=== PATIENT | male | born 1945 | race Caucasian/White ===

== ENCOUNTER 2023-12-21 15:41 | Inpatient (IN) | payer MEDICARE, SELFPAY ==
[2023-12-21] VITALS (10 sets, daily range): BP systolic 119–181; BP diastolic 68–89; PULSE 56–91; RESP 15–20; TEMP 36.7–36.8; O2SAT 95–97; BMI 22.0
--- NOTE | 2023-12-21 15:59 | XRR_ITS ---
PROCEDURE INFORMATION: Exam: XR Chest Exam date and time: 12/21/2023 4:07 PM Age: 78 years old Clinical indication: Chest pressure; Patient HX: Patient presents with chest pain. Patient called EMS x 2 for same symptoms. Patient has had chest pain since 844. Patient 324 asa, 1 nitro in route. Patient denies cardiac HX. Patient states pain radiates down left arm. Patent airway, unlabored respiraitons, and appropriate color. TECHNIQUE: Imaging protocol: Radiologic exam of the chest. Views: 1 view. COMPARISON: No relevant prior studies available. FINDINGS: Lungs: Unremarkable. No consolidation. Pleural spaces: Unremarkable. No pleural effusion. No pneumothorax. Heart/Mediastinum: Unremarkable. No cardiomegaly. Bones/joints: Unremarkable. XR/XR chest 1V portable [id number] IMPRESSION: No acute findings.
--- NOTE | 2023-12-21 15:59 | ECG_ITS ---
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 Measurements Intervals [place] Rate: 77 P: 62 [place]: 140 QRS: 30 QRSD: 92 T: 62 QT: 399 QTc: 453 Interpretive Statements SINUS RHYTHM No previous ECG available for comparison Electronically Signed On 12-21-2023 19:18:46 CDT by Roldan Sanchez M.D. [id number] f
--- NOTE | 2023-12-21 16:11 | W.ED.CHESTPA ---
HPI - Chest Pain General: Chief Complaint: Chest Pain Stated Complaint: CP Time Seen by Provider: 12/21/23 15:50 History of Present Illness: 78-year-old male with a history of hypertension and hyperlipidemia who presents the emergency room with left-sided chest pain. He says it is an ache in his left central chest with some occasional sharp pains. This started this morning about 9 AM. No nausea vomiting. No diaphoresis. No abdominal pain. No known history of coronary disease. Review of Systems Narrative: Constitutional symptoms: Negative except as documented in HPI. Skin symptoms: Negative except as documented in HPI. Eye symptoms: Negative except as documented in HPI. ENMT symptoms: Negative except as documented in HPI. Respiratory symptoms: Negative except as documented in HPI. Cardiovascular symptoms: Negative except as documented in HPI. Gastrointestinal symptoms: Negative except as documented in HPI. Genitourinary symptoms: Negative except as documented in HPI. Musculoskeletal symptoms: Negative except as documented in HPI. Neurologic symptoms: Negative except as documented in HPI. Psychiatric symptoms: Negative except as documented in HPI. Endocrine symptoms: Negative except as documented in HPI. PFSH ED PFSH: Family History Other CAD (coronary artery disease) Diabetes Social History Smoking and tobacco/nicotine status: former use of tobacco/nicotine Physical Exam Narrative: EXAM NARRATIVE: General: Alert, no acute distress. Skin: Warm, dry. Head: Normocephalic, atraumatic. Neck: Supple, trachea midline. Eye: Extraocular movements are intact. Ears, nose, mouth and throat: mucosa moist. Cardiovascular: Regular, Normal peripheral perfusion. Respiratory: Lungs are clear to auscultation, respirations are non-labored, breath sounds are equal, Symmetrical chest wall expansion. Gastrointestinal: Soft, Nontender, Non distended Musculoskeletal: Normal ROM, no deformity. Neurological: Alert and oriented, No focal neurological deficit observed. Psychiatric: Cooperative, appropriate mood & affect. Course Vital Signs: Vital signs: Vital Signs Temperature 98.3 F 12/21/23 15:45 Pulse Rate 81 12/21/23 19:00 Respiratory Rate 19 H 12/21/23 19:00 Blood Pressure 164/82 12/21/23 19:00 Pulse Oximetry 97 12/21/23 19:00 Oxygen Delivery Me thod Room Air 12/21/23 19:00 MDM - Chest Pain Medical Decision Making Differential diagnosis for patient with chest pain includes but is not limited to and based on the above HPI, review of systems and physical exam: Pneumonia. unstable angina. angina. Acute coronary syndrome / [place]. Pulmonary embolism. Costochondritis / musculoskeletal. Pleurisy. Pericarditis. Esophageal spasm. Pancreatis. Cholecystitis. Orders placed to evaluate differential diagnosis based on the above differential, HPI and physical exam EKG: Time 1547. Rate 77. Normal sinus rhythm, No ST-T changes, no ectopy, normal PA & QRS intervals, This was reviewed and interpreted by myself the ER physician at 1550. Chest x-ray: No acute process. No infiltrate. No pneumothorax. This was reviewed and interpreted by myself the ER physician. Lab Review: Laboratory results were reviewed and interpreted by myself the emergency room physician. No leukocytosis. No renal failure. Potassium is little bit low at 3.2. Initial troponin was elevated at 30. Repeat was up to 60. I reviewed the patient's medical record. Reexamination: Patient says his chest pain has improved at this point. No increased work of breathing. No altered mental status. He does have his with him who has quite advanced dementia and cannot drive and cannot go home. We are working to try to find a way for her to stay with him tonight or to find care. Consultation: I spoke with medical office receptionist assistant on-call Dr. Sanchez. Agrees with admission. Aspirin and therapeutic Lovenox Consultation: I spoke with Dr. Chan who agrees to admission. Assessment and plan: Non-ST elevation myocardial infarction ?Lovenox and aspirin. Cardiology consultation. -I discussed the patient with the hospitalist on-call who is admitting the patient. - Discussed findings and plan with patient. Answered any questions. - All laboratory values were reviewed and interpreted personally by myself, the ER physician - All imaging was reviewed and interpreted personally by myself, the ER physician. - Evaluation and treatment of this problem were appropriate in the emergency setting Lab Data 12/21/23 15:48 12/21/23 15:48 Radiology Impressions Chest X-Ray 12/21/23 15:59 IMPRESSION: No acute findings. Laboratory Results WBC 10.07 10^3/uL (3.29-11.43) 12/21/23 15:48 RBC 4.49 10^6/uL (3.85-5.65) 12/21/23 15:48 Hgb 14.80 g/dL (11.27-16.99) 12/21/23 15:48 Hct 42.4 % (37-53) 12/21/23 15:48 MCV 94.4 fl (82-101) 12/21/23 15:48 MCH 33.0 pg (27-33) 12/21/23 15:48 MCHC 34.9 g/dL (30-55) 12/21/23 15:48 RDW 13.5 % (12.1-15.1) 12/21/23 15:48 Plt Count 224 10^3/cmm (157-399) 12/21/23 15:48 MPV 12.0 fL (7.4-10.4) H 12/21/23 15:48 Neut % (Auto) 86.0 % 12/21/23 15:48 Lymph % (Auto) 10.5 % 12/21/23 15:48 [place] % (Auto) 2.9 % 12/21/23 15:48 Eos % (Auto) 0.2 % 12/21/23 15:48 Baso % (Auto) 0.2 % 12/21/23 15:48 Neut # (Auto) 8.66 10^3/uL (1.8-7.7) H 12/21/23 15:48 Lymph # (Auto) 1.1 10^3/uL (0.8-4.8) 12/21/23 15:48 [place] # (Auto) 0.3 10^3/uL (0.2-0.9) 12/21/23 15:48 Eos # (Auto) 0.0 10^3/uL (0.0-0.8) 12/21/23 15:48 Baso # (Auto) 0.0 10^3/uL (0.0-0.1) 12/21/23 15:48 Nucleated RBC % (auto) 0 % 12/21/23 15:48 Nucleated RBCs # 0.0 /100WBC 12/21/23 15:48 Sodium 138 mmol/L (136-145) 12/21/23 15:48 Potassium 3.2 mmol/L (3.5-5.1) L 12/21/23 15:48 Chloride 99 mmol/L (98-107) 12/21/23 15:48 Carbon Dioxide 24 mmol/L (22-29) 12/21/23 15:48 Anion Gap 18.2 (5-19) 12/21/23 15:48 BUN 8 mg/dL (8-23) 12/21/23 15:48 Creatinine 0.8 mg/dL (0.7-1.2) 12/21/23 15:48 GFR Calculation Not Reportable 12/21/23 15:48 Glucose 156 mg/dL (65-115) H 12/21/23 15:48 Calculated Osmolality 288 mOsm/kg (285-295) 12/21/23 15:48 Calcium 9.2 mg/dL (8.5-10.5) 12/21/23 15:48 Total Bilirubin 0.5 mg/dL (0.15-1.2) 12/21/23 15:48 AST 25 U/L (0-40) 12/21/23 15:48 ALT 26 U/L (0-41) 12/21/23 15:48 Alkaline Phosphatase 121 U/L (40-130) 12/21/23 15:48 Troponin T Baseline 62 ng/L (0-15) H 12/21/23 15:48 Troponin T 120 Minute 91.94 ng/L (0-15) H 12/21/23 17:57 Delta Troponin T 29.94 ABS# (0-10) H* 12/21/23 17:57 Total Protein 7.2 g/dL (6.6-8.7) 12/21/23 15:48 Albumin 4.4 g/dL (3.5-5.2) 12/21/23 15:48 Globulin 2.8 g/dL (1.3-4.6) 12/21/23 15:48 All radiology interpretation(s) finalized by discharge Discharge Plan Discharge Patient Disposition: Admitted As Inpatient Clinical Impression: Non-ST elevated myocardial infarction Condition: Stable Coding Level of Care Code ED Mechanical Maintenance Supervisor for Jody Westbrook
[2023-12-21 16:28] LABS: Basophils % 0.2 %; Eosinophils % 0.2 %; Hematocrit 42.4 % (37-53); Lymphocytes # 1.1 10^3/uL (0.8-4.8); Lymphocytes % 10.5 %; Mean Corpuscular HGB Conc 34.9 g/dL (30-55); Mean Corpuscular Volume 94.4 fl (82-101); Monocytes # 0.3 10^3/uL (0.2-0.9); Monocytes % 2.9 %; Neutrophils # 8.66 10^3/uL (1.8-7.7); Nucleated Red Blood Cells % 0 %; Platelet Count 224 10^3/cmm (157-399); Red Blood Count 4.49 10^6/uL (3.85-5.65); Red Cell Distribution Width 13.5 % (12.1-15.1); White Blood Count 10.07 10^3/uL (3.29-11.43)
[2023-12-21 16:39] LABS: Troponin(5th) Baseline 62 ng/L (0-15)
[2023-12-21 16:41] LABS: Alanine Aminotransferase 26 U/L (0-41); Albumin Level 4.4 g/dL (3.5-5.2); Alkaline Phosphatase 121 U/L (40-130); Anion Gap 18.2 (5-19); Aspartate Amino Transferase 25 U/L (0-40); Blood Urea Nitrogen 8 mg/dL (8-23); Calcium 9.2 mg/dL (8.5-10.5); Carbon Dioxide 24 mmol/L (22-29); Chloride 99 mmol/L (98-107); Creatinine Clr Calc Pharmacy 70.1546; Globulin 2.8 g/dL (1.3-4.6); Glucose 156 mg/dL (65-115); Osmolality Calculated 288 mOsm/kg (285-295); Potassium 3.2 mmol/L (3.5-5.1); Sodium 138 mmol/L (136-145); Total Bilirubin 0.5 mg/dL (0.15-1.2); Total Protein 7.2 g/dL (6.6-8.7)
--- NOTE | 2023-12-21 17:59 | ECG_ITS ---
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 Measurements Intervals [place] Rate: 62 P: 54 DC: 135 QRS: 26 QRSD: 80 T: 71 QT: 418 QTc: 428 Interpretive Statements SINUS RHYTHM Compared to ECG 12/21/2023 15:47:35 No significant changes Electronically Signed On 12-21-2023 19:25:53 CDT by Roldan Sanchez M.D. [email or web address] hospitalQwenty/store/OM/[id number]/[email or web address]/[id number]
[2023-12-21 18:24] LABS: Troponin 5 2HR 91.94 ng/L (0-15)
[2023-12-21 18:27] LABS: Troponin 5 2HR Delta 29.94 ABS# (0-10)
[2023-12-21] MEDS: enoxaparin 80 mg/0.8 mL Syringe 70 MG SUBCUT (19:05)
--- NOTE | 2023-12-21 20:00 | P.HP_ITS ---
Providers/Chief Complaint 2 Primary Care Provider: Darrick Samuel Chief Complaint: CP History of Present Illness Felix Gentile is a 78 year old male With past medical history of diabetes, hypertension, hyperlipidemia presented to the hospital with complaint of left- sided chest pain that was aching in nature at times also felt as a pressure. He says he was sitting when the pain started. In fact he was driving to take his somewhere. He felt nauseous and started sweating. He said he called 911 thereafter. All this happened around 9 in the morning. He denies abdominal pain, shortness of breath. He says he is no longer having that similar chest pain. Has no known history of coronary artery disease. Denies smoking. Has smoked in the past however. When patient arrived to ER chest pain had already improved. He was given aspirin x 1. Initial EKG showed normal sinus rhythm and no acute ischemic changes. Chest x-ray did not show any acute pathology. Potassium 3.2. Initial troponin 30 with delta Trope of 29.22 hours. 6-hour troponin is pending at this time. Cardiology was consulted. Patient will be admitted at this time for NSTEMI. Patient did get 1 dose of therapeutic Lovenox in the ER. Patient states his has severe dementia and cannot be left alone even for a single minute. He is requesting his stay here in the hospital with him. We have explained to the patient that if he goes to cardiac angiogram or for procedure or testing it will be difficult to monitor his while he is gone. Hospitalized will be talking with the patient regarding arranging family to sweet pickle maker patient's . He is currently trying to make movements on the phone. Medications/Allergies Home Medications Medication Instructions Recorded Confirmed Last Taken Type atorvastatin 80 mg tablet 80 mg PO BEDTIME 03/29/21 12/21/23 12/20/23 History finasteride 5 mg tablet 5 mg PO BEDTIME 03/29/21 12/21/23 12/20/23 History irbesartan 150 1 tab PO DAILY 03/29/21 12/21/23 12/21/23 History mg-hydrochlorothiazide 12.5 mg tablet latanoprost 0.005 % eye drops 1 drp ophthalmic (eye) BEDTIME 03/29/21 12/21/23 12/20/23 History pantoprazole 40 mg tablet,delayed 40 mg PO BEDTIME 03/29/21 12/21/23 12/20/23 History release timolol 0.5 % eye drops 1 drp ophthalmic (eye) DAILY 03/29/21 12/21/23 12/21/23 History potassium chloride 10 mEq 10 meq PO DAILY 03/28/22 12/21/23 12/21/23 History tablet,extended release Allergies Allergy/AdvReac Type Severity Reaction Status Date / Time penicillin G Allergy unk Verified 06/20/22 09:50 PFSH Acute 2 PFSH: Family History Other CAD (coronary artery disease) Diabetes Social History Smoking and tobacco/nicotine status: former use of tobacco/nicotine Vitals/I&O/Wt Last Vital Signs Temp 98.3 F 12/21/23 15:45 Pulse 81 12/21/23 19:00 Resp 19 H 12/21/23 19:00 BP 164/82 12/21/23 19:00 Pulse Ox 97 12/21/23 19:00 O2 Del Method Room Air 12/21/23 19:00 Weight last 48 hrs Weight 65.771 kg Physical Exam 2 Narrative: General: Alert oriented x3, patient seen sitting up in bed appearing comfortable, at bedside. HEENT: Normocephalic, atraumatic, EOMI, breathing normally on room air. Cardio: Regular rate rhythm, normal S1-S2, no gross murmurs appreciated at this time, chest pain is not reproducible to palpation. Respiratory: Clear to auscultation bilaterally GI: Abdomen soft, nontender, nondistended, bowel sounds + Extremities: No edema or cyanosis appreciated. Data 12/21/23 15:48 12/21/23 15:48 A&P Assessment and plan (1) Non-ST elevated myocardial infarction: (2) Hypertension: (3) Hyperlipidemia: Plan #Chest pain, NSTEMI #Hypertension #Hyperlipidemia -Check TSH, hemoglobin A1c, lipid profile ? Patient given loading dose therapeutic Lovenox. Will continue at that dose twice daily ? Placed on ACS protocol aspirin 81, loaded with Plavix 300, Plavix 75 daily, atorvastatin 80 daily ? Will add Metroprolol tartrate 12.5 twice daily ? Placed on normal saline 75 cc/h ? Check echo rule out wall motion abnormalities ? Serial EKGs ? Initial troponin completed, delta 2 hours 29.2. 6-hour troponin pending at this time ? Cardiology consult placed. ? N.p.o. at midnight except medications ? If patient has chest pain again may consider placing Nitropaste ? Blood pressure 164/82 most likely secondary to pain at this time. Will need to complete medication reconciliation. Will recheck blood pressure and treat if still remains high. Admit to CSU with telemetry Full code DVT prophylaxis: On therapeutic Lovenox Attestations 2 Medical Necessity Statement*: Greater than 2 minutes of management of NSTEMI Diagnoses Non-ST elevated myocardial infarction I21.4 Hypertension I10 Hyperlipidemia E78.5
--- NOTE | 2023-12-21 20:15 | PC.NURSE ---
report called to
[2023-12-21 20:46] LABS: Cholesterol 153 mg/dL (0-200); HDL Cholesterol 51 mg/dL (60-100); LDL Cholesterol Calculated 88 mg/dL (50-129); Thyroid Stimulating Hormone 1.36 uIU/mL (0.27-4.20); Triglycerides 68 mg/dL (0-150); VLDL Cholestrol Calculation 14 mg/dL (0-30)
[2023-12-21 21:09] LABS: Estmated Average Glucose 126
[2023-12-21] MEDS: atorvastatin 40 mg Tablet 80 MG PO (21:20)
[2023-12-21] MEDS: clopidogrel 300 mg Tablet PO (21:20)
[2023-12-21] MEDS: sodium chloride 0.9% 1,000 ML 100 ML IV (21:21)
--- NOTE | 2023-12-21 22:41 | ECG_ITS ---
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 Measurements Intervals [place] Rate: 67 P: 42 MO: 146 QRS: 19 QRSD: 83 T: 34 QT: 397 QTc: 422 Interpretive Statements SINUS RHYTHM Compared to ECG 12/21/2023 17:48:36 No significant changes Electronically Signed On 12-22-2023 12:06:12 CDT by Roldan Sanchez M.D. [email or web address] [email or web address] campus of delta regional medical centerAstonish Resultsmercy health allen hospitalAbsolutData/store/OM/[id number]/[email or web address]/[id number]
[2023-12-21 22:44] LABS: Troponin 5 6HR 196.3 ng/L (0-15); Troponin 5 6HR Delta 134.3 ng/L (0-12)
[2023-12-22] VITALS (35 sets, daily range): BP systolic 126–165; BP diastolic 66–91; PULSE 53–85; RESP 13–18; TEMP 36.4–36.9; O2SAT 94–99
[2023-12-22] MEDS: potassium chloride ER 20 mEq Tablet 40 MEQ PO (01:37)
[2023-12-22 04:02] LABS: Basophils % 0.4 %; Eosinophils # 0.2 10^3/uL (0.0-0.8); Eosinophils % 2.1 %; Hematocrit 39.4 % (37-53); Lymphocytes # 1.4 10^3/uL (0.8-4.8); Lymphocytes % 18.7 %; Mean Corpuscular HGB Conc 33.2 g/dL (30-55); Mean Corpuscular Hemoglobin 31.3 pg (27-33); Mean Platelet Volume 11.6 fL (7.4-10.4); Monocytes # 0.8 10^3/uL (0.2-0.9); Monocytes % 9.8 %; Neutrophils # 5.26 10^3/uL (1.8-7.7); Neutrophils % 68.7 %; Nucleated Red Blood Cells % 0 %; Platelet Count 153 10^3/cmm (157-399); Red Blood Count 4.19 10^6/uL (3.85-5.65); Red Cell Distribution Width 13.5 % (12.1-15.1); White Blood Count 7.65 10^3/uL (3.29-11.43)
[2023-12-22 04:34] LABS: Anion Gap 12.5 (5-19); Blood Urea Nitrogen 6 mg/dL (8-23); Calcium 8.3 mg/dL (8.5-10.5); Carbon Dioxide 24 mmol/L (22-29); Chloride 107 mmol/L (98-107); Creatinine Clr Calc Pharmacy 70.1546; Glucose 99 mg/dL (65-115); Magnesium 1.7 mg/dL (1.7-2.3); Osmolality Calculated 288 mOsm/kg (285-295); Potassium 3.5 mmol/L (3.5-5.1); Sodium 140 mmol/L (136-145)
[2023-12-22] MEDS: sodium chloride 0.9% 1,000 ML 100 ML IV (06:06)
--- NOTE | 2023-12-22 07:15 | P.CONIM_ITS ---
Providers/Reason For Consult 2 Consulting Physician/Specialty*: Roldan Sanchez MD/ Cardiology Reason for Consult*: NSTEMI Requesting Physician: Dr Hamilton Attending Physician: Shey Chan MD Primary Care Provider: Darrick Samuel History of Present Illness History of Present Illness Felix Gentile is a 78 year old male with past medical history of hypertension who presented to hospital with 1 day of on and off chest discomfort. He states it started yesterday morning and was quite significant. Substernal pain with radiation to the left arm. His troponins trended up significantly from baseline of 62 to 196 at 6 hours. EKG not showing significant ischemic changes. He does not have prior significant cardiac history. Review of Systems 2 General: Reports: 10 or more systems reviewed and unremarkable except in HPI and below Card: Reports: chest pain Medications/Allergies Home Medications Medication Instructions Recorded Confirmed Last Taken Type atorvastatin 80 mg tablet 80 mg PO BEDTIME 03/29/21 12/21/23 12/20/23 History finasteride 5 mg tablet 5 mg PO BEDTIME 03/29/21 12/21/23 12/20/23 History irbesartan 150 1 tab PO DAILY 03/29/21 12/21/23 12/21/23 History mg-hydrochlorothiazide 12.5 mg tablet latanoprost 0.005 % eye drops 1 drp ophthalmic (eye) BEDTIME 03/29/21 12/21/23 12/20/23 History pantoprazole 40 mg tablet,delayed 40 mg PO BEDTIME 03/29/21 12/21/23 12/20/23 History release timolol 0.5 % eye drops 1 drp ophthalmic (eye) DAILY 03/29/21 12/21/23 12/21/23 History potassium chloride 10 mEq 10 meq PO DAILY 03/28/22 12/21/23 12/21/23 History tablet,extended release Allergies Allergy/AdvReac Type Severity Reaction Status Date / Time penicillin G Allergy unk Verified 06/20/22 09:50 Current Medications Generic Name Dose Route Start Last Admin Trade Name Freq PRN Reason Stop Dose Admin Atorvastatin Calcium 80 mg 12/21/23 21:00 12/21/23 21:20 Atorvastatin 40 Mg Tablet PO 80 mg BEDTIME SHAWN Administration Sodium Chloride 1,000 mls @ 100 mls/hr 12/21/23 20:00 12/22/23 06:06 Sodium Chloride 0.9% IV 100 mls/hr .Q10H SHAWN Administration PFSH Acute 2 PFSH: Family History Other CAD (coronary artery disease) Diabetes Social History Smoking and tobacco/nicotine status: former use of tobacco/nicotine Vitals/I&O/Wt Last Vital Signs Temp 98.5 F 12/22/23 04:00 Pulse 80 12/22/23 04:00 Resp 17 12/22/23 04:00 BP 152/79 12/22/23 04:00 Pulse Ox 95 12/22/23 04:00 O2 Del Method Room Air 12/22/23 04:00 12/21/23 12/22/23 12/22/23 22:59 06:59 14:59 Intake Total 875 / 875 Output Total 1230 / 1230 Balance -355 / -355 Weight last 48 hrs Weight 139 lb 8 oz Weight 145 lb Weight 145 lb Physical Exam 2 Narrative: GENERAL: Patient is alert, awake and oriented x3. [] NECK: No jugular vein distension. [] HEENT: No cyanosis. No icterus. No pallor. [] HEART: Regular S1 and S2. No murmur, rub or gallop. [] LUNGS: Clear to auscultate bilaterally. [] CENTRAL NERVOUS SYSTEM: Grossly nonfocal. [] EXTREMITIES: Lower extremities with 1+ edema bilaterally. Data 12/23/23 06:10 12/22/23 03:35 A&P Assessment and plan (1) Non-ST elevated myocardial infarction: (2) Hypertension: (3) Hyperlipidemia: Plan Patient has presented with typical chest pain symptoms and had a significant troponin uptrend. Findings consistent with non-ST elevation [place]. We will proceed with coronary angiogram with possible PCI. Risks and benefits of the procedure have been discussed with the patient. He understands them and wants to proceed. Continue aspirin, Plavix and Lovenox. Echocardiogram ordered. Thank you for involving us with care of this patient. We will continue to follow. Please call with questions. Consult Attestations 2 Medical Necessity Statement: Care expected to cross 2 midnights. Coding Level of Care Code Acute Code for Chg Fwd Diagnoses Non-ST elevated myocardial infarction I21.4 Hypertension I10 Hyperlipidemia E78.5
--- NOTE | 2023-12-22 09:30 | USCV_ITS ---
Felix Gentile Age: 78 Gender: M : 1945 Exam Date: 12/22/2023 09:02 Ordering Phys: Shey Chan MD Technologist: CT Exam Location: [facility] [place] Indication: nstemi BP: 168 / 85 HR: 78 Rhythm: Sinus Technical Quality: Adequate MEASUREMENTS (Male / Female) Normal Values 2D ECHO LVOT Diameter 2.0 cm LV Ejection Fraction MOD 2C 59.9 % LV Ejection Fraction 2C AL 59.3 % LA Diameter 4.2 cm RA Systolic Volume 4C AL 39.3 ml RA Systolic Volume 4C MOD 38.3 ml LA Sys Volume AL 41.2 cm cubed LA Sys Volume Index AL 23.2 cm cubed/m squared Aorta at Sinotubular Diameter 2.4 cm M-MODE LA Ao Ratio MM 1.7 AV Cusp Separation MM 2.2 cm DOPPLER AV Peak Velocity 219.0 cm/s LVOT Peak Velocity 97.0 cm/s AV Area Cont Eq vti 1.7 cm squared AV Area Cont Eq pk 1.4 cm squared MV Peak Velocity 107.0 cm/s MV Area PHT 3.6 cm squared Mitral E to A Ratio 1.0 TR Peak Velocity 184.0 cm/s TR Peak Gradient 13.5 mmHg TV Peak E Velocity 104.0 cm/s Right Atrial Pressure 3.0 mmHg Pulmonary Artery Systolic Pressu 16.5 mmHg PV Peak Velocity 99.5 cm/s FINDINGS Left Ventricle Normal left ventricular size and systolic function, EF 59% . Mild left ventricular hypertrophy. Grade I/IV diastolic dysfunction (abnormal relaxation filling pattern), normal to mildly elevated filling pressures. Right Ventricle The right ventricle is normal in size and function. Right Atrium The right atrium is normal in size. Left Atrium Mildly dilated left atrium Mitral Valve Mild mitral annular calcification. Trace mitral valve regurgitation. Aortic Valve Moderate aortic valve calcification. Features of aortic valve sclerosis with a peak velocity of 2.2 m/s Tricuspid Valve No stenotic or Significant regurgitant lesions. Pulmonic Valve No gross abnormalities noted Pericardium Normal pericardium without effusion. Aorta Normal ascending aorta dimension. IVC The inferior vena cava appears normal. CONCLUSIONS Normal left ventricular size and systolic function, EF 59% . Mild left ventricular hypertrophy. Grade I/IV diastolic dysfunction (abnormal relaxation filling pattern), normal to mildly elevated filling pressures. Mildly dilated left atrium. Moderate aortic valve calcification. Features of aortic valve sclerosis with a peak velocity of 2.2 m/s. No stenotic or Significant regurgitant lesions. There is no pericardial effusion. There are no intracardiac masses. No similar previous studies are available for comparison Dr Cristian Marion MD [facility] (Electronically Signed) Final Date: 22 December 2023 17:28 S
--- NOTE | 2023-12-22 09:52 | W.PM.OPSUD ---
Surgery/Procedure H&P Update DATE OF PROCEDURE: December 22, 2023 DATE H&P PERFORMED: 12/22/23 H&P UPDATE INFORMATION: I have reviewed H&P completed within last 30 days, I have examined patient prior to procedure and No changes to prior documentation PREOP DIAGNOSIS: NSTEMI PRIMARY INDICATION FOR PROCEDURE: NSTEMI PLANNED PROCEDURE: Left heart cath with possible percutaneous coronary intervention PATIENT REASSESSED PRIOR TO SEDATION, WITH NO CHANGE NOTED: Yes PHYSICAL EXAM: alert, oriented x 3, clear to auscultation bilaterally and regular rate & rhythm AIRWAY EVAL/ANESTHESIA PLAN: normal airway, ASA III, Local Anesthesia, Risks, benefits & alternatives of sedation and/or procedure discussed and Patient agrees to continue as planned ADDITIONAL INFORMATION: Moderate sedation
--- NOTE | 2023-12-22 10:55 | SUR.PHASEI ---
POST CATH NOTE Received patient from hospital laboratory technician. Status post left cardiac cath. Condition- stable. Radial access site- hemostatic. See pcs for assessment details. Vitals stable. Call light in reach. No pain reported at this time. IV- 0.9% NS at 100 ml/hr post cath until discharge as verbal order from Dr Sanchez. Informed to call for needs. Holding in CPRU pending bed availability as he is PCI.
--- NOTE | 2023-12-22 11:32 | SUR.PHASEI ---
IV fluids 0.9% ns at 100 ml/hr post cath per verbal order from Dr Sanchez.
--- NOTE | 2023-12-22 12:13 | PM.MISC ---
Miscellaneous Note Purpose of Documentation: Brief procedure note Note: Mid LAD has significant 70% stenosis s/p successful revascularization with 1 stent. 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
[2023-12-22] MEDS: pantoprazole DR 40 mg Tablet PO (12:53)
--- NOTE | 2023-12-22 13:25 | PC.NURSE ---
per doctor verbal order verified to start NS at 75 cc/hr for 12 hrs.
[2023-12-22] MEDS: timolol 0.5% Op Soln 5 mL Btl 1 DROP EYEAFF (13:32)
--- NOTE | 2023-12-22 14:48 | P.PN_ITS ---
Subjective 2 Subjective: Patient was seen this morning, sitting up to the side of the bed, denies any chest pain this morning, no palpitations, Vitals/I&O/Wt Last Vital Signs Temp 97.6 F 12/22/23 07:21 Pulse 69 12/22/23 13:15 Resp 13 12/22/23 12:30 BP 142/81 12/22/23 13:15 Pulse Ox 97 12/22/23 12:45 O2 Del Method Room Air 12/22/23 12:45 12/21/23 12/22/23 12/22/23 22:59 06:59 14:59 Intake Total 875 / 875 1736.667 / 1736.667 Output Total 1230 / 1230 300 / 300 Balance -355 / -355 1436.667 / 1436.667 Weight last 48 hrs Weight 63.276 kg Weight 65.771 kg Weight 65.771 kg Physical Exam 2 Const: COMMON NORMALS: no acute distress and patient oriented x3 Resp: COMMON NORMALS: normal respiratory effort, No retractions, No use of accessory muscles and clear to auscultation bilaterally AUSCULTATION: clear to auscultation bilaterally Cardio: COMMON NORMALS: regular rate, regular rhythm, S1 normal heart sound present and S2 normal heart sound present RATE: regular rate RHYTHM: r egular rhythm HEART SOUNDS: S1 normal heart sound present and S2 normal heart sound present GI: COMMON NORMALS: Normal to inspection, nondistended, normoactive bowel sounds present and non-tender Extremity: COMMON NORMALS: no pedal edema Neuro: COMMON NORMALS: patient oriented x3 Psych: COMMON NORMALS: mental status grossly normal Data 12/22/23 03:35 12/22/23 03:35 A&P Assessment and plan (1) Non-ST elevated myocardial infarction: (2) Hypertension: (3) Hyperlipidemia: Plan #Chest pain, NSTEMI #Hypertension #Hyperlipidemia -Check TSH1.36, hemoglobin A1c 6, lipid profile HDL 51 ? Patient given loading dose therapeutic Lovenox. Will continue at that dose twice daily ? Placed on ACS protocol aspirin 81, loaded with Plavix 300, Plavix 75 daily, atorvastatin 80 daily ? Coreg 3.25 twice daily ? Placed on normal saline 75 cc/h ? Check echo rule out wall motion abnormalities ? Serial EKGs ? Cardiology consult placed. ? N.p.o. at midnight except medications ? If patient has chest pain again may consider placing Nitropaste ? Plan on cardiac catheterization Admit to CSU with telemetry Full code DVT prophylaxis: On therapeutic Lovenox Plan for today cardiac catheterization Attestations 2 Medical Necessity Statement*: Patient requires hospitalization for chest pain, planning cardiac catheterization Diagnoses Non-ST elevated myocardial infarction I21.4 Hypertension I10 Hyperlipidemia E78.5
[2023-12-22] MEDS: carvedilol 3.125 mg Tablet PO (14:56)
--- NOTE | 2023-12-22 15:12 | PC.SOCIAL ---
IMM updated IMM initialed and dated, copy given to patient and placed in chart.
[2023-12-22] MEDS: sodium chloride 0.9% 1,000 ML 75 ML IV (17:47)
--- NOTE | 2023-12-22 19:30 | PC.NURSE ---
Right wrist site assessed with Sukhwinder RN. Right arm bruising noted and marked with bruising into hand. The patients arm was elevated on pillow at this time and wrist was wrapped with coban for some compression. Educated patient on not using right arm to push up or pull, keep elevated to prevent further bruising or swelling.
[2023-12-22] MEDS: latanoprost 0.005% Op Soln 2.5 mL Btl 1 DROP EYE-BOTH (20:52)
[2023-12-22] MEDS: atorvastatin 40 mg Tablet 80 MG PO (20:52)
--- NOTE | 2023-12-22 23:10 | PC.NURSE ---
Patient right wrist site assessed. The patient has had no further bruising into forearm but has started to swell into right hand near thumb. Patient was educated on keeping arm elevated and right wrist was rewrapped including right hand. The patient denies any pain to site.
[2023-12-23] VITALS (7 sets, daily range): BP systolic 134–166; BP diastolic 78–88; PULSE 55–69; RESP 17–19; TEMP 36.4–36.8; O2SAT 95–97
--- NOTE | 2023-12-23 00:16 | PC.NURSE ---
Addendum entered by Cyndi Coronel RN 12/23/23 00:19: Date of note 12/22/23 19:30 Original Note: Right wrist site assessed with Sukhwinder RN. Right arm bruising noted and marked with bruising into hand. The patients arm was elevated on pillow at this time and wrist was wrapped with coban for some compression. Educated patient on not using right arm to push up or pull, keep elevated to prevent further bruising or swelling.
[2023-12-23] MEDS: enoxaparin 40 mg/0.4 mL Syringe SUBCUT (05:22)
[2023-12-23 06:43] LABS: Basophils % 0.5 %; Eosinophils # 0.2 10^3/uL (0.0-0.8); Eosinophils % 2.7 %; Hematocrit 39.1 % (37-53); Lymphocytes # 1.1 10^3/uL (0.8-4.8); Lymphocytes % 15.4 %; Mean Corpuscular Hemoglobin 31.5 pg (27-33); Mean Corpuscular Volume 95.6 fl (82-101); Mean Platelet Volume 11.7 fL (7.4-10.4); Monocytes # 0.7 10^3/uL (0.2-0.9); Monocytes % 9.6 %; Neutrophils # 5.29 10^3/uL (1.8-7.7); Neutrophils % 71.5 %; Nucleated Red Blood Cells % 0 %; Platelet Count 158 10^3/cmm (157-399); Red Blood Count 4.09 10^6/uL (3.85-5.65); Red Cell Distribution Width 13.9 % (12.1-15.1)
[2023-12-23 07:04] LABS: Anion Gap 13.7 (5-19); Blood Urea Nitrogen 6 mg/dL (8-23); Calcium 8.5 mg/dL (8.5-10.5); Carbon Dioxide 24 mmol/L (22-29); Chloride 107 mmol/L (98-107); Creatinine Clr Calc Pharmacy 69.7767; Glucose 112 mg/dL (65-115); Osmolality Calculated 290 mOsm/kg (285-295); Potassium 3.7 mmol/L (3.5-5.1); Sodium 141 mmol/L (136-145)
--- NOTE | 2023-12-23 07:10 | PM.PN ---
Vitals/I&O/Wt Last Vital Signs Temp 98.3 F 12/23/23 04:00 Pulse 65 12/23/23 06:00 Resp 18 12/23/23 04:00 BP 134/84 12/23/23 04:00 Pulse Ox 96 12/23/23 04:00 O2 Del Method Room Air 12/23/23 04:00 12/22/23 12/23/23 12/23/23 22:59 06:59 14:59 Intake Total 583.333 / 2320.000 548.75 / 2868.750 Output Total 800 / 1100 Balance -216.667 / 1220.000 548.75 / 1768.750 Weight last 48 hrs Weight 143 lb Weight 139 lb 8 oz Weight 145 lb Weight 145 lb Data 12/23/23 06:10 12/23/23 06:10 Coding Level of Care Code Acute Code for Chg Fwyarely
[2023-12-23] MEDS: pantoprazole DR 40 mg Tablet PO (08:09)
[2023-12-23] MEDS: aspirin 81 mg EC Tablet PO (08:09)
[2023-12-23] MEDS: carvedilol 3.125 mg Tablet PO (08:09)
[2023-12-23] MEDS: clopidogrel 75 mg Tablet PO (08:10)
[2023-12-23] MEDS: timolol 0.5% Op Soln 5 mL Btl 1 DROP EYEAFF (08:10)
--- NOTE | 2023-12-23 10:42 | PM.DCS ---
Discharge Providers Date of Admission: 12/21/23 19:51 Date of Discharge: December 23, 2023 Attending Provider at Admission: Shey Chan MD Attending Provider at Discharge: Sloan Nassar MD Primary Care Provider: Darrick Samuel Diagnoses at Discharge Discharge Diagnosis (1) Non-ST elevated myocardial infarction: Status: Acute (2) Hypertension: Status: Acute (3) Hyperlipidemia: Status: Acute Reason for Visit Reason for Visit: CP Hospital Course Hospital Course Felix Gentile is a 78 year old male With past medical history of diabetes, hypertension, hyperlipidemia presented to the hospital with complaint of left-sided chest pain that was aching in nature at times also felt as a pressure. He says he was sitting when the pain started. In fact he was driving to take his somewhere. He felt nauseous and started sweating. He said he called 911 thereafter. All this happened around 9 in the morning. He denies abdominal pain, shortness of breath. He says he is no longer having that similar chest pain. Has no known history of coronary artery disease. Denies smoking. Has smoked in the past however. When patient arrived to ER chest pain had already improved. He was given aspirin x 1. Initial EKG showed normal sinus rhythm and no acute ischemic changes. Chest x-ray did not show any acute pathology. Potassium 3.2. Initial troponin 30 with delta Trope of 29.22 hours. 6-hour troponin is pending at this time. Cardiology was consulted. Patient will be admitted at this time for NSTEMI. Patient did get 1 dose of therapeutic Lovenox in the ER. Patient states his has severe dementia and cannot be left alone even for a single minute. He is requesting his stay here in the hospital with him. We have explained to the patient that if he goes to cardiac angiogram or for procedure or testing it will be difficult to monitor his while he is gone. 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 He is currently trying to make movements on the phone. Patient presented to [facility] for chest pain, NSTEMI, managed on aspirin, Plavix, therapeutic Lovenox, cardiology was consulted, underwent coronary angiography and intervention as below Mid LAD has significant 70% stenosis s/p successful revascularization with 1 stent. 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 -Patient will be discharged on aspirin, statin, Plavix, beta-cielo with close follow-up with cardiology as outpatient -He was strongly advised to not stop taking aspirin or Plavix, as it is keeping his stent open ? His primary care provider in a few days for blood pressure check ? If he develops bloody or black stools to be to go to emergency room If any recurrent chest pain go to emergency room Physical Exam Const: COMMON NORMALS: no acute distress and patient oriented x3 Resp: COMMON NORMALS: normal respiratory effort, No retractions, No use of accessory muscles and clear to auscultation bilaterally AUSCULTATION: clear to auscultation bilaterally Cardio: COMMON NORMALS: regular rate, regular rhythm, S1 normal heart sound present and S2 normal heart sound present RATE: regular rate RHYTHM: regular rhythm HEART SOUNDS: S1 normal heart sound present and S2 normal heart sound present GI: COMMON NORMALS: Normal to inspection, nondistended, normoactive bowel sounds present and non-tender Extremity: COMMON NORMALS: no pedal edema Neuro: COMMON NORMALS: patient oriented x3 Psych: COMMON NORMALS: mental status grossly normal Discharge Data Studies Completed and Pending Completed Studies During Hospitalization Category Date Time Status XR chest 1V portable [id number] Stat Exams 12/21/23 15:59 Completed CV. 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 Laboratory Results WBC 7.40 10^3/uL (3.29-11.43) 12/23/23 06:10 RBC 4.09 10^6/uL (3.85-5.65) 12/23/23 06:10 Hgb 12.90 g/dL (11.27-16.99) 12/23/23 06:10 Hct 39.1 % (37-53) 12/23/23 06:10 MCV 95.6 fl (82-101) 12/23/23 06:10 MCH 31.5 pg (27-33) 12/23/23 06:10 MCHC 33.0 g/dL (30-55) 12/23/23 06:10 RDW 13.9 % (12.1-15.1) 12/23/23 06:10 Plt Count 158 10^3/cmm (157-399) 12/23/23 06:10 MPV 11.7 fL (7.4-10.4) H 12/23/23 06:10 Neut % (Auto) 71.5 % 12/23/23 06:10 Lymph % (Auto) 15.4 % 12/23/23 06:10 [place] % (Auto) 9.6 % 12/23/23 06:10 Eos % (Auto) 2.7 % 12/23/23 06:10 Baso % (Auto) 0.5 % 12/23/23 06:10 Neut # (Auto) 5.29 10^3/uL (1.8-7.7) 12/23/23 06:10 Lymph # (Auto) 1.1 10^3/uL (0.8-4.8) 12/23/23 06:10 [place] # (Auto) 0.7 10^3/uL (0.2-0.9) 12/23/23 06:10 Eos # (Auto) 0.2 10^3/uL (0.0-0.8) 12/23/23 06:10 Baso # (Auto) 0.0 10^3/uL (0.0-0.1) 12/23/23 06:10 Nucleated RBC % (auto) 0 % 12/23/23 06:10 Nucleated RBCs # 0.0 /100WBC 12/23/23 06:10 Sodium 141 mmol/L (136-145) 12/23/23 06:10 Potassium 3.7 mmol/L (3.5-5.1) 12/23/23 06:10 Chloride 107 mmol/L (98-107) 12/23/23 06:10 Carbon Dioxide 24 mmol/L (22-29) 12/23/23 06:10 Anion Gap 13.7 (5-19) 12/23/23 06:10 BUN 6 mg/dL (8-23) L 12/23/23 06:10 Creatinine 0.8 mg/dL (0.7-1.2) 12/23/23 06:10 GFR Calculation Not Reportable 12/23/23 06:10 Glucose 112 mg/dL (65-115) 12/23/23 06:10 Estimat Average Glucose 126 12/21/23 15:48 Hemoglobin A1c 6.0 % (4.0-6.0) 12/21/23 15:48 Calculated Osmolality 290 mOsm/kg (285-295) 12/23/23 06:10 Calcium 8.5 mg/dL (8.5-10.5) 12/23/23 06:10 Magnesium 1.7 mg/dL (1.7-2.3) 12/22/23 03:35 Total Bilirubin 0.5 mg/dL (0.15-1.2) 12/21/23 15:48 AST 25 U/L (0-40) 12/21/23 15:48 ALT 26 U/L (0-41) 12/21/23 15:48 Alkaline Phosphatase 121 U/L (40-130) 12/21/23 15:48 Troponin T Baseline 62 ng/L (0-15) H 12/21/23 15:48 Troponin T 120 Minute 91.94 ng/L (0-15) H 12/21/23 17:57 Delta Troponin T 29.94 ABS# (0-10) H* 12/21/23 17:57 Troponin T Hi Sens 6Hr 196.3 ng/L (0-15) H 12/21/23 22:07 Troponin T Hi Sens 6Hr Delta 134.3 ng/L (0-12) H* 12/21/23 22:07 Total Protein 7.2 g/dL (6.6-8.7) 12/21/23 15:48 Albumin 4.4 g/dL (3.5-5.2) 12/21/23 15:48 Globulin 2.8 g/dL (1.3-4.6) 12/21/23 15:48 Triglycerides 68 mg/dL (0-150) 12/21/23 17:58 Cholesterol 153 mg/dL (0-200) 12/21/23 17:58 LDL Cholesterol, Calc 88 mg/dL (50-129) 12/21/23 17:58 Total VLDL Cholesterol 14 mg/dL (0-30) 12/21/23 17:58 HDL Cholesterol 51 mg/dL (60-100) L 12/21/23 17:58 Cholesterol/HDL Ratio 3.00 mg/dL (1.0-5.00) 12/21/23 17:58 TSH 1.36 uIU/mL (0.27-4.20) 12/21/23 17:58 Vitals Last Vital Signs Temp 97.5 F L 12/23/23 08:00 Pulse 69 12/23/23 08:00 Resp 19 H 12/23/23 08:00 BP 151/83 12/23/23 08:00 Pulse Ox 97 12/23/23 07:30 O2 Del Method Room Air 12/23/23 07:30 Discharge Plan Discharge Patient Disposition: Home Condition: Stable Prescriptions: New aspirin 81 mg Tablet,Delayed Release (Dr/Ec) 81 mg PO DAILY 30 Days Qty: 30 0RF carvedilol 3.125 mg Tablet 3.125 mg PO BID 30 Days Qty: 60 0RF nitroglycerin 0.4 mg tablet, sublingual 0.4 mg sublingual Q5M PRN (Reason: chest pain) 30 Days Qty: 30 0RF Rx Instructions: do not exceed 3 doses per episode clopidogrel 75 mg Tablet 75 mg PO DAILY 30 Days Qty: 30 0RF Continued pantoprazole 40 mg tablet,delayed release (DR/EC) 40 mg PO BEDTIME finasteride 5 mg tablet 5 mg PO BEDTIME timolol 0.5 % drops 1 drp ophthalmic (eye) DAILY latanoprost 0.005 % drops 1 drp ophthalmic (eye) BEDTIME potassium chloride 10 mEq tablet extended release 10 meq PO DAILY atorvastatin 80 mg tablet 80 mg PO BEDTIME 30 Days Qty: 30 0RF Changed irbesartan-hydrochlorothiazide 150-12.5 mg tablet 0.5 tab PO DAILY 30 Days Qty: 15 0RF Discharge Orders: Discharge Order (Routine); Ordered 12/23/23 Ordered By: Sloan Nassar Referrals: Darrick Samuel [Primary Care Provider] - 1-3 days Duyen Olvera FNP [Nurse Practitioner] - 4-7 days Discharge Diet: Cardiac Discharge Activity: Resume usual activity Patient Instructions: Opioid Safety Activity Restrictions/Additional Instructions: - Please continue aspirin, Plavix for your heart stent -Please do not stop taking his medications as they keep your heart stent open, if you stop them you have a risk of a heart attack If you develop bloody or black stools please immediately go to the emergency room or call 911 ? Please follow-up with your primary care provider to recheck your blood pressure within a few days ? If you have any recurrent chest pain to go to the emergency room Discharge Attestations Time Spent in Discharge Care*: greater than 30 min Quality Metrics Clinical Quality Measures [ Acute Myocardial Infaction { Clinical Trial Participant: No; Contraindication to aspirin: None; Aspirin prescribed; Contraindication to statin: None; Statin prescribed; Contraindication to PCI: None; PCI performed;}] Coding Level of Care Code 05785 Total time (in minutes) for Discharge: 45 Diagnoses Non-ST elevated myocardial infarction I21.4 Hypertension I10 Hyperlipidemia E78.5
--- NOTE | 2023-12-23 13:35 | PC.NURSE ---
Discharge Note Patient discharged to home via wheelchair accompanied by family. Discharge instructions reviewed with patient and/or pharmaceutical service representative. Mobile pharmacy medications and/or prescriptions provided. Belongings/home medications returned.
== END 2023-12-23 12:30 | disposition home or self-care (01) | DRG 322 ==
LOC: ER 19:29 → MEDSURG 20:22
PROVIDERS: Internal Medicine; Admitting Provider Internal Medicine; Emergency Provider Emergency Medicine; PCP Family Medicine; Visit Provider Family Medicine
PROC: 027136Z Dilation of Coronary Artery, Two Arteries with Three Drug-eluting Intraluminal Devices, Percutaneous Approach (ICD-10-PCS; principal; 2023-12-22 10:00)
PROC: 027136Z Dilation of Coronary Artery, Two Arteries with Three Drug-eluting Intraluminal Devices, Percutaneous Approach (ICD-10-PCS; 2023-12-22 10:00)
DX: I21.4 Non-ST elevation (NSTEMI) myocardial infarction (principal); E11.9 Type 2 diabetes mellitus without complications; I10 Essential (primary) hypertension; E78.5 Hyperlipidemia, unspecified; Z87.891 Personal history of nicotine dependence
CPT/HCPCS: 36415; 71045; 80048; 80053; 80061; 83036; 83735; 84443; 84484; 85025; 85347; 92978; 93005; 93306; 93454; 96372; 96374; 96375; 96376; 97161; 99152; 99153; 99285; C1725; C1753; C1769; C1874; C1887; C1894; C9600; C9601; J1644; J1650; J2250; J3010; J3490; J7030; Q9967

== ENCOUNTER → 2024-01-12 13:22 | Outpatient (BNVA) | payer MEDICARE, SELFPAY | PROVIDERS: PCP Family Medicine; Visit Provider Nurse Practitioner Family | DX: Z09 Encounter for follow-up examination after completed treatment for conditions other than malignant neoplasm (principal) | CPT/HCPCS: 99213 ==

== ENCOUNTER → 2024-03-05 10:47 | Outpatient (BNVA) | payer MEDICARE, SELFPAY | PROVIDERS: PCP Family Medicine; Visit Provider Internal Medicine Cardiovascular Disease | DX: R07.2 Precordial pain (principal); R06.02 Shortness of breath; I25.2 Old myocardial infarction; E78.2 Mixed hyperlipidemia; I10 Essential (primary) hypertension; R00.1 Bradycardia, unspecified; Z87.891 Personal history of nicotine dependence | CPT/HCPCS: 99214 ==

== ENCOUNTER → 2024-05-06 08:53 | Outpatient (BNVA) | payer MEDICARE, SELFPAY | PROVIDERS: PCP Family Medicine; Visit Provider Nurse Practitioner Family | DX: I10 Essential (primary) hypertension (principal); R07.2 Precordial pain; I25.118 Atherosclerotic heart disease of native coronary artery with other forms of angina pectoris; Z87.891 Personal history of nicotine dependence; I25.2 Old myocardial infarction | CPT/HCPCS: 99214 ==

== ENCOUNTER 2024-05-11 08:09 | Outpatient (CLI) | payer MEDICARE, SELFPAY ==
--- NOTE | 2024-05-11 | ECG_ITS ---
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 Baseline heart rate was 81 beats per minute. Baseline blood pressure was 149/106 millimeters of mercury. Target heart rate was 139 beats per minute. Maximum heart rate achieved was 149, which was 107% of the target heart rate. Maximum blood pressure was 199/112 millimeters of mercury. Total exercise time was 4 minutes 20 seconds maximum METs achieved was 7.0, maximum VO2 was 24.5. The reason for ending the test was maximum effort achieved and shortness of breath. The patient complained of shortness of breath during the stress test, which then resolved at the end of the test. ELECTROCARDIOGRAM: BASELINE: Showed sinus rhythm, normal axis, no significant ST-T changes at the baseline noted. EXERCISE: At the peak exercise level, inferolateral moderate ST segment flattening noted RECOVERY: During the recovery period, heart rate dropped appropriately. Inferolateral ST-T changes in the recovery returned to baseline and 35 seconds of recovery CONCLUSION: 1. Exercise capacity fair 2. Heart rate response was tachycardic. 3. Blood pressure response was hypertensive. 4. Symptoms not suggestive of ischemia. 5. Electrocardiogram portion of the stress test was equivocal for ischemia ischemia given inferolateral ST segment depression however did return back to baseline within 35 seconds of recovery. Clinical correlation advised Electronically Signed On 05-19-2024 00:04:54 NOUGAT CAND[employer] MAKER HELPER by YOEL JONES [email or web address]
[2024-05-11 08:13] VITALS: BMI 21.2
--- NOTE | 2024-05-11 08:14 | NMCV_ITS ---
NM tmamy perf SPECT r/s* [id number] Felix Gentile Age: 79 Gender: M : 1945 Exam Date: 05/11/2024 08:14 Ordering Phys: Yoel Jones MD ([email or web address]) Technologist: LILY Mendoza Exam Location: [facility] Indications: cp STRESS TEST Please see separate stress test report in [facility] for full findings IMAGE PROTOCOL Rest/Stress 1 Exercise Day Radiopharmaceutical Dose (mCi) Administration Site Administered by Rest: Tc-99m 10.8 IV LILY Mendoza Stress:Tc-99m 30.2 IV LILY Garduno Rest: 05/11/2024 60 Discovery 630 Stress: 05/11/2024 15 Discovery 630 Radiopharmaceutical was injected at 96% maximum heart rate. Supine position only as patient was unable to lay prone. SPECT RESULTS Technical Quality: Good Raw Data Analysis: Image Corrections: Summed Stress Score: 0 Summed Rest Score: 0 Summed Difference Score: 0 PERFUSION FINDINGS SPECT images demonstrate homogeneous tracer distribution throughout the myocardium. FUNCTIONAL RESULTS (calculated via Gated SPECT) Stress Image LV EF (%): 81 Stress EDV (mL):54 TID: 0.79 Stress ESV (mL):10 FUNCTIONAL FINDINGS: There is normal left ventricular systolic function. IMPRESSIONS Myocardial perfusion imaging is normal. Yoel Jones MD (Electronically Signed) Final Date: 11 May 2024 23:56 S
[2024-05-11 10:14] VITALS: BP 148/99; PULSE 88
== END 2024-05-11 08:10 | disposition home or self-care (01) ==
LOC: CDL 08:10
PROVIDERS: PCP Family Medicine; Visit Provider Internal Medicine Cardiovascular Disease
DX: R07.9 Chest pain, unspecified (principal); R06.02 Shortness of breath; R94.39 Abnormal result of other cardiovascular function study
CPT/HCPCS: 36415; 78452; 93017; 96374; A9500

== ENCOUNTER → 2024-07-07 12:56 | Outpatient (BNVA) | payer MEDICARE, SELFPAY | PROVIDERS: PCP Family Medicine; Visit Provider Nurse Practitioner Family | DX: L81.4 Other melanin hyperpigmentation (principal); L57.8 Other skin changes due to chronic exposure to nonionizing radiation; D22.5 Melanocytic nevi of trunk; Z08 Encounter for follow-up examination after completed treatment for malignant neoplasm; Z85.828 Personal history of other malignant neoplasm of skin; L57.0 Actinic keratosis; L56.8 Other specified acute skin changes due to ultraviolet radiation | CPT/HCPCS: 17000; 99213 ==

== ENCOUNTER → 2024-09-02 14:15 | Outpatient (BNVA) | payer MEDICARE, SELFPAY | PROVIDERS: PCP Family Medicine; Visit Provider Internal Medicine | DX: I25.118 Atherosclerotic heart disease of native coronary artery with other forms of angina pectoris (principal); E78.2 Mixed hyperlipidemia; I10 Essential (primary) hypertension | CPT/HCPCS: 99214 ==

== ENCOUNTER → 2024-10-27 13:16 | Outpatient (BNVA) | payer MEDICARE, SELFPAY | PROVIDERS: PCP Family Medicine; Referring Provider Family Medicine; Visit Provider Surgery | DX: D50.9 Iron deficiency anemia, unspecified (principal); D64.9 Anemia, unspecified | CPT/HCPCS: 99204 ==

== ENCOUNTER → 2025-03-03 12:04 | Outpatient (BNVA) | payer MEDICARE, SELFPAY | PROVIDERS: PCP Family Medicine; Visit Provider Internal Medicine | DX: I25.10 Atherosclerotic heart disease of native coronary artery without angina pectoris (principal); E78.2 Mixed hyperlipidemia; I10 Essential (primary) hypertension; I25.2 Old myocardial infarction | CPT/HCPCS: 99213 ==